=== PATIENT | male | born 1965 | race African-American/Black ===

== ENCOUNTER 2020-12-17 09:45 | Emergency (ER) | payer SELFPAY ==
[~2020-12-17] VITALS: Ht 180.3 cm; Wt 79.8 kg
--- NOTE | 2020-12-17 09:55 | NUR ---
DR. LAMAR AT FOR EVAL.
[2020-12-17] MEDS ORDERED: KETOROLAC TROMETHAMINE INJ 30 MG/ML VIAL ONE (10:00)
[2020-12-17] MEDS: KETOROLAC TROMETHAMINE INJ 60 MG/2 ML VIAL IM ONE (10:06)
--- NOTE | 2020-12-17 10:09 | NUR ---
MEDICATED PER ERMD ORDER, PT HENRIQUE WELL.
[2020-12-17] MEDS ORDERED: TRAM50TA2 PO (10:47)
--- NOTE | 2020-12-17 10:56 | NUR ---
Patient discharged to home in stable condition. Written and verbal after care instructions given. Patient verbalizes understanding of instruction.
[2020-12-17 10:57] VITALS: BP 121/83
== END 2020-12-17 10:57 | disposition home or self-care (01) ==
LOC: ER 10:01
DX: M54.50 Low back pain, unspecified (principal)
CPT/HCPCS: 72110; 96372; 99283; J1885